=== PATIENT | female | born 1975 | race Two or more races ===

== ENCOUNTER 2021-10-20 02:44 | Emergency (ER) | payer OTHER ==
[~2021-10-20] VITALS: Ht 175.3 cm; Wt 108.0 kg
[2021-10-20] MEDS ORDERED: LEVSIN/SL0.125 MG SL (07:05)
== END 2021-10-20 07:23 ==
LOC: ER 02:44
DX: R10.84 Generalized abdominal pain (principal); R19.7 Diarrhea, unspecified

== ENCOUNTER 2023-08-17 08:27 | Emergency (ER) | payer OTHER ==
[~2023-08-17] VITALS: Ht 172.7 cm; Wt 100.7 kg
[~2023-08-17 08:27] MED LIST: LEVSIN/SL0.125 MG SL
[2023-08-17] MEDS ORDERED: DEXAMETHASONE SODIUM PHOSPHATE 4 MG/ML VIAL ONE (11:27)
[2023-08-17] MEDS ORDERED: ACETAMINOPHEN 500 MG GEL..CAP PO ONE ×2 (11:27→11:30)
[2023-08-17] MEDS ORDERED: DEXAMETHASONE SODIUM PHOSPHATE 4 MG/ML VIAL IM ONE (11:30)
[2023-08-17 13:09] LABS: HEMATOCRIT 36.1 % (36.0-45.00); HEMOGLOBIN 11.6 g/dL (12.0-15.00); MEAN CELL VOLUME 70.9 fL (80.00-100.00); MEAN CORPUSCULAR HEMOGLOBIN 22.7 pg (27.00-32.0); PLATELET COUNT 237 K/uL (150-450); RED CELL DISTRIBUTION WIDTH 18.4 % (11.5-14.5)
[2023-08-17] MEDS ORDERED: AMOX-CLAV 875-1 EAC1 PO ×2 (14:09→14:11)
[2023-08-17] MEDS ORDERED: TUSNEL DM LIQU473 ML PO (14:10)
[2023-08-17] MEDS ORDERED: MONTELUKAST SOD10 MG PO (14:10)
== END 2023-08-17 14:21 | disposition home or self-care (01) ==
LOC: ER 08:29
PROVIDERS: General Practice
DX: J02.9 Acute pharyngitis, unspecified (principal); R68.89 Other general symptoms and signs; Z20.822 Contact with and (suspected) exposure to COVID-19; Z88.2 Allergy status to sulfonamides
CPT/HCPCS: 36415; 96372; 99282; J1100

== ENCOUNTER 2024-10-01 10:31 | Emergency (ER) | payer OTHER ==
[~2024-10-01] VITALS: Ht 172.7 cm; Wt 108.9 kg
[~2024-10-01 10:31] MED LIST changes: +AMOX-CLAV 875-1 EAC1 PO; +MONTELUKAST SOD10 MG PO; +TUSNEL DM LIQU473 ML PO
[2024-10-01] MEDS ORDERED: LOSARTAN POTASSIUM 25 MG TABLET PO ONE (11:00)
[2024-10-01 11:48] LABS: BASO % 0.5 % (0.1-1.2); EOS # 0.06 (0.04-0.54); EOS % 1.1 % (0.7-7.0); LYMPH # 1.85 (1.18-3.74); LYMPH % 33.8 % (19.3-53.1); MEAN PLATELET VOLUME 10.50 fl (9.4-12.4); MONO # 0.58 (0.24-0.82); MONO % 10.6 % (4.7-12.5); NEUT # 2.94 (1.56-6.13); NEUT % 53.6 % (34.0-71.1); RED CELL DISTRIBUTION WIDTH 17.6 % (11.6-14.4)
[2024-10-01] MEDS ORDERED: COZAAR25 MG PO (13:42)
== END 2024-10-01 14:16 | disposition home or self-care (01) ==
LOC: ER 10:31
PROVIDERS: General Practice
DX: R07.89 Other chest pain (principal); Z88.2 Allergy status to sulfonamides